=== PATIENT | female | born 1960 | race Caucasian/White ===

== ENCOUNTER → 2019-03-05 | Outpatient (CLI) | payer SELFPAY ==
--- NOTE | 2019-03-05 16:53 | Diagnostic Imaging Report ---
PROCEDURE: CT chest without contrast. TECHNIQUE: Multiple contiguous axial images were obtained through the chest without the use of intravenous contrast. Auto Exposure Controls were utilized during the CT exam to meet ALARA standards for radiation dose reduction. DATE: March 05, 2019. COMPARISON: None. INDICATION: 58-year-old female, shortness of breath on exertion, edema. PROCEDURE: Axial noncontrasted CT images of the chest. Noncontrasted limits the evaluation of the mediastinum and vascular structures. FINDINGS: There is no identified pulmonary nodule. There is no lung mass. There is very mild linear opacification in the lower lobes likely relating to very mild scarring and/or atelectasis. There is no additional focal airspace consolidation. No pneumothorax. There is no pleural effusion. The central airways are patent. There are coronary artery calcifications. Heart is not grossly enlarged. There is no pericardial effusion. There is no abnormally enlarged mediastinal or axillary lymph node which meets CT size criteria for adenopathy. The imaged portions of the upper abdomen are unremarkable. There are mild multilevel degenerative changes of the spine. There is no identified acute bony abnormality. IMPRESSION: 1. No identified acute cardiopulmonary abnormality. 2. Very mild linear opacities in the lower lobes likely reflecting mild scarring and/or atelectasis. Dictated by: Dictated on workstation # [id number]
== END ==
LOC: RAD 13:12
PROVIDERS: ATTEND Nurse Practitioner
DX: I10 Essential (primary) hypertension (principal); R60.9 Edema, unspecified; R91.8 Other nonspecific abnormal finding of lung field
CPT/HCPCS: 71250; 93306

== ENCOUNTER → 2019-04-26 | Outpatient (CLI) | payer OTHER ==
[~2019-04-26] VITALS: Ht 162 cm; Wt 54.0 kg
[~2019-04-26] MED LIST: CATHETER FLUSH 10 ML SYR IV PRN
[2019-04-26 09:32] VITALS: BP 146/84
--- NOTE | 2019-04-26 22:17 | STRESS TEST ---
DATE OF SERVICE: EXERCISE MYOVIEW STRESS TEST REPORT REFERRING PHYSICIAN: Dr. Zabrina Cain. Baseline heart rate is 78. Baseline blood pressure 116/74. Baseline EKG is sinus rhythm with no ischemic changes. In summary, the patient was injected with 10.24 mCi of technetium-99 Myoview and the resting images were obtained. Then, the patient started exercising with a baseline heart rate, blood pressure and EKG mentioned above. The patient was able to exercise for 4 minutes and 40 seconds on standard [facility] protocol. With peak exercise level, EKG was showing nondiagnostic changes. Blood pressure was 146/87. During recovery, heart rate and blood pressure returned to baseline. EKG returned to baseline. The resting and stress images were reviewed and compared in the short axis, horizontal long axis, and vertical long axis views. Review of the images showed good radiotracer uptake with no significant ischemia or infarction. SSS is 2, SDS 0. TID value 1.0. On the gated images, the left ventricle appeared to be normal size, mild diffuse left ventricular hypokinesia, calculated ejection fraction 43%. CONCLUSION: 1. Fair exercise tolerance, a total of 4 minutes 40 seconds on standard [facility] protocol, total of 6.6 METS achieving 96% of maximum expected heart rate. 2. Appropriate heart rate and blood pressure response to exercise returned to baseline during recovery. 3. Minimal nondiagnostic EKG changes with exercise returned to baseline during recovery. 4. Breast attenuation affecting the quality of the images, there is no significant ischemia or infarction on SPECT images. 5. Normal left ventricular size with mild diffuse left ventricular hypokinesia, calculated ejection fraction 43%. Job ID: [id number] DocumentID: [id number] Dictated Date: 04/26/2019 16:51:11 Brass Burnisher Date: 04/26/2019 22:16:21 Dictated By: JAYSON TOLLIVER MD
== END ==
LOC: CARD 07:48
PROVIDERS: ATTEND Internal Medicine Cardiovascular Disease
DX: I08.1 Rheumatic disorders of both mitral and tricuspid valves (principal); I50.9 Heart failure, unspecified; Q21.1 Atrial septal defect
CPT/HCPCS: 78452; 93017

== ENCOUNTER → 2019-05-17 | Outpatient (CLI) | payer OTHER | LOC: CARD 09:26 | PROVIDERS: ATTEND Physician Assistant | DX: I34.0 Nonrheumatic mitral (valve) insufficiency (principal); I50.9 Heart failure, unspecified; I51.7 Cardiomegaly; Q21.1 Atrial septal defect | CPT/HCPCS: 93306 ==

== ENCOUNTER → 2019-10-13 | Outpatient (CLI) | payer OTHER ==
[2019-10-13] VITALS (24 sets, daily range): BP systolic 63–141; BP diastolic 24–95
[~2019-10-13] VITALS: Ht 157 cm; Wt 48.6 kg
[~2019-10-13] MED LIST changes: +ATROPINE INJECTION 1 MG/10 ML SYR (ABBOTT) ONE; -CATHETER FLUSH 10 ML SYR IV PRN; +NS IV 1000 ML 1,000 ML IV SCH; +NS IV 1000 ML 1,000 ML ONE
--- NOTE | 2019-10-13 12:03 | NUR ---
IV BOLUS WAS GIVEN ONCE SUPINE IN STAGE 3 OF TILT. IV DC'D AT THIS TIME, AMBULATORY ON DC
--- NOTE | 2019-10-13 12:58 | Cardiology Tilt Table Test ---
Cardiology-Tilt Table Test Tilt Table Test Date 10/13/19 Baseline Vitals Vital Signs Date Time Temp Pulse Resp B/P (MAP) Pulse Ox O2 Delivery O2 Flow Rate FiO2 10/13/19 10:59 36.7 80 21 140/85 (103) 97 Vital Signs VS - Last 72 Hours, by Label 10/13/19 10/13/19 10/13/19 10/13/19 10:59 11:07 11:08 11:11 Temp 36.7 Pulse 80 91 95 93 Resp 21 B/P (MAP) 140/85 (103) 123/89 (100) 127/91 (103) 119/95 (103) Pulse Ox 97 97 97 10/13/19 10/13/19 10/13/19 10/13/19 11:13 11:15 11:18 11:21 Pulse 98 98 77 81 B/P (MAP) 129/91 (104) 119/89 (99) 141/92 (108) 132/94 (107) Pulse Ox 97 97 98 97 10/13/19 10/13/19 10/13/19 10/13/19 11:22 11:23 11:24 11:26 Pulse 90 92 104 102 B/P (MAP) 114/83 (93) 113/80 (91) 75/57 (63) 70/50 (57) Pulse Ox 95 96 96 10/13/19 10/13/19 10/13/19 10/13/19 11:27 11:29 11:31 11:32 Pulse 106 96 91 88 B/P (MAP) 69/52 (58) 77/45 (56) 68/49 (55) 73/41 (52) Pulse Ox 98 10/13/19 10/13/19 10/13/19 10/13/19 11:34 11:36 11:37 11:39 Pulse 84 89 89 90 B/P (MAP) 74/55 (61) 63/24 (37) 78/47 (57) 81/61 (68) Pulse Ox 97 98 10/13/19 10/13/19 10/13/19 10/13/19 11:41 11:45 11:47 11:53 Pulse 59 91 67 74 B/P (MAP) 96/64 (75) 116/69 (85) 120/81 (94) 125/80 (95) Pulse Ox 97 97 98 Patient was tilted to 75 degrees for [10] minutes, then returned to supine position, given [2] sublingual nitroglycerin tablets, then tilted again to 75 degrees for [15] minutes. During test, patient was: symptomatic (during stage 2, minutes 2-15 with hypotension and dizziness. No syncope.) In Conclusion;: Positive Tilt Table Test (with vasodepressive response without syncope. ) Patient was instructed to increase fluid and salt intake. Recommend CAMELIA jordan. I will discontinue Coreg and Entresto, start Toprol XL 25mg daily. f/u in 1 month. This is Kandice Lopez PA-C, as a scribe for Dr. Flores. KANDICE GARCIA October 13, 2019 12:58
== END ==
LOC: CARD 10:20
PROVIDERS: ATTEND Physician Assistant
DX: I50.9 Heart failure, unspecified (principal); R42 Dizziness and giddiness; Q21.1 Atrial septal defect; I07.1 Rheumatic tricuspid insufficiency; I95.9 Hypotension, unspecified; Z72.0 Tobacco use
CPT/HCPCS: 93660

== ENCOUNTER → 2019-10-29 | Outpatient (CLI) | payer OTHER | LOC: CARD 11:38 | PROVIDERS: ATTEND Internal Medicine Cardiovascular Disease | DX: I34.0 Nonrheumatic mitral (valve) insufficiency (principal); I50.9 Heart failure, unspecified; R53.83 Other fatigue; R63.5 Abnormal weight gain | CPT/HCPCS: 93306 ==